=== PATIENT | male | born 1995 | race African-American/Black ===

== ENCOUNTER 2018-02-14 03:57 | Emergency (ER) | payer SELFPAY ==
[2018-02-14] MEDS ORDERED: Ondansetron 4 MG/2 ML SDV IVPUSH ONE (04:15)
[2018-02-14] MEDS ORDERED: Sodium Chloride 0.9% 1,000 ML IV ONE (04:16)
[2018-02-14 04:54] LABS: CHLORIDE,CL 103 mmol/L (98-107); SODIUM,NA 139 mmol/L (136-148)
--- NOTE | 2018-02-14 06:08 | EDM.PDOC ---
ED HPI GENERAL MEDICAL PROBLEM - General Chief Complaint: Gastrointestinal Problem Stated Complaint: DIARRHEA, VOMITING Time Seen by Provider: 02/14/18 06:03 - History of Present Illness INITIAL COMMENTS - FREE TEXT/NARRATIVE: HISTORY AND PHYSICAL: History of present illness: Patient is 22-year-old male presents with a concern of diarrhea 1 day. No fever chills no abdominal pain no chest pain cough shortness of breath or other concern Review of systems: As per history of present illness and below otherwise all systems reviewed and negative. Past medical history: As per history of present illness and as reviewed below otherwise noncontributory. Surgical history: As per history of present illness and as reviewed below otherwise noncontributory. Social history: No reported history of drug or alcohol abuse. Family history: As per history of present illness and as reviewed below otherwise noncontributory. Physical exam: HEENT: Atraumatic, normocephalic, pupils reactive, negative for conjunctival pallor or scleral icterus, mucous membranes dry throat clear, neck supple, nontender, trachea midline. Lungs: Clear to auscultation, breath sounds equal bilaterally, chest nontender. Heart: S1S2, regular, negative for clicks, rubs, or JVD. Abdomen: Soft, nondistended, nontender. Negative for masses or hepatosplenomegaly. Negative for costovertebral tenderness. Pelvis: Stable nontender. Genitourinary: Deferred. Rectal: Deferred. Extremities: Atraumatic, negative for cords or calf pain. Neurovascular unremarkable. Neuro: Awake, alert, oriented. Cranial nerves II through XII unremarkable. Cerebellum unremarkable. Motor and sensory unremarkable throughout. Exam nonfocal. Diagnostics: CBC CMP UA influenza screen Therapeutics: Normal saline 1 L bolus Impression: #1 viral syndrome #2 dehydration Definitive disposition and diagnosis as appropriate pending reevaluation and review of above. general abdominal Pain Score (Numeric/FACES): 2 - Related Data Allergies Allergy/AdvReac Type Severity Reaction Status Date / Time No Known Allergies Allergy Verified 02/14/18 04:03 Home Meds: Home Meds . [No Known Home Meds] 02/14/18 [History] Past Medical History HEENT History: Reports: None Cardiovascular History: Reports: None Respiratory History: Reports: None Gastrointestinal History: Reports: None Genitourinary History: Reports: None Musculoskeletal History: Reports: None Neurological History: Reports: None Psychiatric History: Reports: None Endocrine/Metabolic History: Reports: None Hematologic History: Reports: None Oncologic (Cancer) History: Reports: None Dermatologic History: Reports: None - Infectious Disease History Infectious Disease History: Reports: Scarlet Fever - Past Surgical History Male Surgical History: Reports: None Musculoskeletal Surgical History: Reports: None Social & Family History - Family History Family Medical History: Noncontributory - Tobacco Use Smoking Status *Q: Current Every Day Smoker Years of Tobacco use: 1 Packs/Tins Daily: 1 - Recreational Drug Use Recreational Drug Use: No ED ROS GENERAL - Review of Systems Review Of Systems: ROS reveals no pertinent complaints other than HPI. ED EXAM, GENERAL - Physical Exam Exam: See Below (See dictation) Course - Vital Signs Last Recorded V/S: Last Vital Signs Temp 36.6 C 02/14/18 05:15 Pulse 62 02/14/18 05:15 Resp 18 02/14/18 05:15 BP 108/60 02/14/18 05:15 Pulse Ox 98 02/14/18 05:15 - Orders/Labs/Meds Orders: Active Orders 24 hr Category Date Time Status INFLUENZA A+B AG SCREEN [RM] Stat Lab 02/14/18 04:20 Ordered UA W/MICROSCOPIC [URIN] Stat Lab 02/14/18 05:11 Ordered Labs: Laboratory Tests 02/14/18 02/14/18 02/14/18 Range/Units 04:20 04:20 05:11 WBC 13.63 H (4.0-11.0) K/uL RBC 4.89 (4.50-5.90) M/uL Hgb 15.1 (13.0-17.0) g/dL Hct 44.9 (38.0-50.0) % MCV 91.8 (80.0-98.0) fL MCH 30.9 (27.0-32.0) pg MCHC 33.6 (31.0-37.0) g/dL RDW Std Deviation 44.6 (28.0-62.0) fl RDW Coeff of Holly 13 (11.0-15.0) % Plt Count 204 (150-400) K/uL MPV 10.40 (7.40-12.00) fL Neut % (Auto) 62.9 (48.0-80.0) % Lymph % (Auto) 25.4 (16.0-40.0) % [place] % (Auto) 9.2 (0.0-15.0) % Eos % (Auto) 2.1 (0.0-7.0) % Baso % (Auto) 0.4 (0.0-1.5) % Neut # (Auto) 8.6 H (1.4-5.7) K/uL Lymph # (Auto) 3.5 H (0.6-2.4) K/uL [place] # (Auto) 1.3 H (0.0-0.8) K/uL Eos # (Auto) 0.3 (0.0-0.7) K/uL Baso # (Auto) 0.1 (0.0-0.1) K/uL Nucleated RBC % 0.0 /100WBC Nucleated RBCs # 0 K/uL Sodium 139 (136-148) mmol/L Potassium 4.3 (3.5-5.1) mmol/L Chloride 103 (98-107) mmol/L Carbon Dioxide 30.4 (21.0-32.0) mmol/L BUN 16 (7.0-18.0) mg/dL Creatinine 1.1 (0.8-1.3) mg/dL Est Cr Clr Drug Dosing 108.48 mL/min Estimated GFR (MDRD) > 60.0 ml/min Glucose 112 H (74-106) mg/dL Calcium 9.3 (8.5-10.1) mg/dL Total Bilirubin 0.3 (0.2-1.0) mg/dL AST 26 (15-37) IU/L ALT 26 (14-63) IU/L Alkaline Phosphatase 59 (46-116) U/L Total Protein 7.8 (6.4-8.2) g/dL Albumin 4.5 (3.4-5.0) g/dL Globulin 3.3 (2.0-3.5) g/dL Albumin/Globulin Ratio 1.4 (1.3-2.8) Urine Color YELLOW Urine Appearance CLEAR Urine pH 8.0 (5.0-8.0) Ur Specific [place] 1.015 (1.001-1.035) Urine Protein TRACE (NEGATIVE) mg/dL Urine Glucose (UA) NEGATIVE (NEGATIVE) mg/dL Urine Ketones NEGATIVE (NEGATIVE) mg/dL Urine Occult Blood NEGATIVE (NEGATIVE) Urine Nitrite NEGATIVE (NEGATIVE) Urine Bilirubin NEGATIVE (NEGATIVE) Urine Urobilinogen 1.0 (<2.0) EU/dL Ur Leukocyte Esterase NEGATIVE (NEGATIVE) Urine RBC 0-2 (0-2/HPF) Urine WBC 1-2 (0-5/HPF) Ur Epithelial Cells OCCASIONAL (NONE-FEW) Urine Bacteria FEW (NEGATIVE) Urine Mucus MODERATE (NONE-MOD) Meds: Medications Discontinued Medications Generic Name Dose Route Start Last Admin Trade Name Tobias PRN Reason Stop Dose Admin Sodium Chloride 1,000 mls @ 999 mls/hr 02/14/18 04:16 02/14/18 04:21 Normal Saline IV 02/14/18 05:16 999 mls/hr .Bolus ONE Administration Ondansetron HCl 4 mg 02/14/18 04:15 02/14/18 04:21 Zofran IVPUSH 02/14/18 04:16 4 mg ONETIME ONE Administration Departure - Departure Time of Disposition: 06:07 Disposition: Home, Self-Care 01 Condition: Good Clinical Impression: Viral syndrome, Dehydration - Discharge Information Referrals: PCP,None [Primary Care Provider] - Additional Instructions: The following information is given to patients seen in the emergency department who are being discharged to home. This information is to outline your options for follow-up care. We provide all patients seen in our emergency department with a follow-up referral. The need for follow-up, as well as the timing and circumstances, are variable depending upon the specifics of your emergency department visit. If you don't have a primary care physician on staff, we will provide you with a referral. We always advise you to contact your personal physician following an emergency department visit to inform them of the circumstance of the visit and for follow-up with them and/or the need for any referrals to a consulting specialist. The emergency department will also refer you to a specialist when appropriate. This referral assures that you have the opportunity for followup care with a specialist. All of these measure are taken in an effort to provide you with optimal care, which includes your followup. Under all circumstances we always encourage you to contact your private physician who remains a resource for coordinating your care. When calling for followup care, please make the office aware that this follow-up is from your recent emergency room visit. If for any reason you are refused follow-up, please contact the [facility] emergency department at and asked to speak to the emergency department charge nurse. Follow-up primary medical doctor call schedule appointment return as needed as discussed - My Orders Last 24 Hours: My Active Orders 02/14/18 04:20 INFLUENZA A+B AG SCREEN [RM] Stat 02/14/18 05:11 UA W/MICROSCOPIC [URIN] Stat - Assessment/Plan Last 24 Hours: My Active Orders 02/14/18 04:20 INFLUENZA A+B AG SCREEN [RM] Stat 02/14/18 05:11 UA W/MICROSCOPIC [URIN] Stat
== END 2018-02-14 06:37 | disposition home or self-care (01) ==
LOC: MW.ED 03:57
DX: E86.0 Dehydration (principal); B34.9 Viral infection, unspecified; F17.210 Nicotine dependence, cigarettes, uncomplicated
CPT/HCPCS: 80053; 81001; 85025; 87804; 96361; 96374; 99284; J2405; J7040; 99283

== ENCOUNTER 2019-09-22 18:20 | Emergency (ER) | payer BC ==
[2019-09-22] MEDS ORDERED: Sodium Chloride 0.9% 1,000 ML IV ONE (18:40)
[2019-09-22] MEDS ORDERED: Ondansetron 4 MG/2 ML SDV IVPUSH ONE (18:40)
[2019-09-22] MEDS ORDERED: Alum Hydrox/Mag Hydrox/Simeth 15 ML, Metoclopramide 5 MG, Lidocaine 2% 5 ML PO ONE ×3 (18:42)
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
[2019-09-22 19:31] LABS: BLOOD UREA NITROGEN,BUN 14 mg/dL (7.0-18.0); CARBON DIOXIDE,CO2 22.9 mmol/L (21.0-32.0); CHLORIDE,CL 104 mmol/L (98-107); GLUCOSE RANDOM 107 mg/dL (74-106); LIPASE 94 U/L (73-393); POTASSIUM,K 3.6 mmol/L (3.5-5.1); SODIUM,NA 142 mmol/L (136-148)
[2019-09-22] MEDS ORDERED: Iopamidol 755 MG/ML 500 ML Multipack Bottle IVPUSH STA (20:03)
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
== END 2019-09-22 20:55 | disposition home or self-care (01) ==
LOC: MW.ED 18:20
DX: R10.84 Generalized abdominal pain (principal); D72.829 Elevated white blood cell count, unspecified
CPT/HCPCS: 36415; 74177; 80053; 81001; 83690; 85025; 96361; 96374; 99284; A9270; J2405; J7040; Q9967; 99283

== ENCOUNTER 2021-07-02 04:54 | Emergency (ER) | payer BC ==
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
== END 2021-07-02 05:00 ==
LOC: MW.ED 04:54
DX: Z02.89 Encounter for other administrative examinations (principal)
CPT/HCPCS: 99281; 99283

== ENCOUNTER 2021-07-08 14:02 | Emergency (ER) | payer BC ==
[2021-07-08] MEDS ORDERED: Benzocaine 20% Topical Spray UD MUCMEM ONE (15:35)
[2021-07-08] MEDS ORDERED: Lidocaine 2% Viscous Solution 15 ML Cup PO ONE (15:35)
--- NOTE | 2021-07-08 16:10 | EDM.PDOC ---
ED HPI GENERAL MEDICAL PROBLEM - General Chief Complaint: ENT Problem Stated Complaint: TOOTH PAIN Time Seen by Provider: 07/08/21 15:20 Source of Information: Reports: Patient History Limitations: Reports: No Limitations - History of Present Illness INITIAL COMMENTS - FREE TEXT/NARRATIVE: HISTORY AND PHYSICAL: History of present illness: Patient is a 26-year-old male who presents emergency room today with concern of dental abscess ongoing for the past 3 to 4 days. Patient states he has had multiple tooth infections in the past and up to go to a dentist but has not yet done this. Patient states he has not taken anything for his symptoms. Patient states he has been able to eat and drink discussed to chew on the opposite side of his infection. Patient denies any other symptoms or concerns. Patient denies fever, chills, chest pain, shortness of breath, or cough. Denies headache, neck stiff ness, change in vision, syncope, or near syncope. Denies nausea, vomiting, abdominal pain, diarrhea, constipation, or dysuria. Has not noted any blood in urine or stool. Patient has been eating and drinking appropriately. Review of systems: As per history of present illness and below otherwise all systems reviewed and negative. Past medical history: As per history of present illness and as reviewed below otherwise noncontributory. Surgical history: As per history of present illness and as reviewed below otherwise noncontributory. Social history: See social history for further information Family history: As per history of present illness and as reviewed below otherwise noncontributory. Physical exam: General: Patient is alert, oriented, and in no acute distress. Patient sitting comfortably on exam table. Vitals stable and reviewed by me HEENT: Dental abscess noted adjacent to tooth #30 and 29 with mild to moderate edema of the adjacent mandible. Patient has full range of motion of the TMJ joint without pain or difficulty. Otherwise, atraumatic, normocephalic, pupils equal and reactive bilaterally, negative for conjunctival pallor or scleral icterus, mucous membranes moist, TMs normal bilaterally, throat clear, neck supple, nontender, trachea midline. No drooling or trismus noted. No meningeal signs. No hot potato voice noted. Lungs: Clear to auscultation, breath sounds equal bilaterally, chest nontender. Heart: S1S2, regular rate and rhythm without overt murmur Abdomen: Soft, nondistended, nontender. Negative for masses or hepatosplenomegaly. Negative for costovertebral tenderness. Pelvis: Stable nontender. Genitourinary: Deferred. Rectal: Deferred. Skin: Intact, warm, dry. No lesions or rashes noted. Extremities: Atraumatic, negative for cords or calf pain. Neurovascular unremarkable. Neuro: Awake, alert, oriented. Cranial nerves II through XII unremarkable. Cerebellum unremarkable. Motor and sensory unremarkable throughout. Exam nonfocal. Notes: Signs and symptoms that were prompt return to the ED thoroughly discussed with patient. Discussed importance for follow-up with a dentist for definitive treatment. Voices understanding and is agreeable to plan of care. Denies any further questions or concerns at this time. Diagnostics: None Therapeutics: Lidocaine, incision and drainage of dental abscess Prescription: Tramadol, Augmentin Impression: Dental abscess Plan: 1. Please take medication as prescribed. Caution when using tramadol as this medication causes sedation. Do not operate any heavy equipment or drive any vehicles while on this medication. Caution with this medication use outside the home. 2. Tylenol and/or ibuprofen as directed and as needed for pain management. 3. "Tooth Balls" have been given to you; apply along the gumline every 2-3 hours as needed. Do not swallow these; external use only. 4. Follow-up with a dentist for definitive care. Return to the ED as needed and as discussed. Definitive disposition and diagnosis as appropriate pending reevaluation and review of above. dental Pain Score (Numeric/FACES): 8 - Related Data Allergies Allergy/AdvReac Type Severity Reaction Status Date / Time tramadol AdvReac Vomiting Verified 07/08/21 20:22 Home Meds: Home Meds Amoxicillin/Potassium Clav [Augmentin 875-125 Tablet] 1 each PO BID 10 Days #20 tablet 07/08/21 [Rx] traMADol HCl [Tramadol HCl] 50 mg PO Q6H PRN #10 tablet 07/08/21 [Rx] Past Medical History HEENT History: Reports: None Cardiovascular History: Reports: None Respiratory History: Reports: None Gastrointestinal History: Reports: None Genitourinary History: Reports: None Musculoskeletal History: Reports: None Neurological History: Reports: None Psychiatric History: Reports: None Endocrine/Metabolic History: Reports: None Hematologic History: Reports: None Oncologic (Cancer) History: Reports: None Dermatologic History: Reports: Other (See Below) Other Dermatologic History: I&D of abscess - Infectious Disease History Infectious Disease History: Reports: Scarlet Fever - Past Surgical History GI Surgical History: Reports: Other (See Below) Other GI Surgeries/Procedures: inguinal Male Surgical History: Reports: None Musculoskeletal Surgical History: Reports: None Social & Family History - Family History Family Medical History: No Pertinent Family History Cardiac: Reports: CAD Endocrine/Metabolic: Reports: Diabetes, Type I - Tobacco Use Tobacco Use Status *Q: Current Every Day Tobacco User Years of Tobacco use: 10 Packs/Tins Daily: 1 - Caffeine Use Caffeine Use: Reports: None - Recreational Drug Use Recreational Drug Use: Yes Recreational Drug Type: Reports: Marijuana/Hashish Recreational Drug Use Frequency: Daily ED ROS GENERAL - Review of Systems Review Of Systems: Comprehensive ROS is negative, except as noted in HPI. ED EXAM, GENERAL - Physical Exam Exam: See Below (see dictation) ED I&D PROCEDURES - I&D Site: Dental abscess adjacent to tooth 29 and 30 Local anesthesia - Lidocaine (Xylocaine): 1% Plain Local Anesthetic Volume: 2cc Area Incised With: 11 Blade Drainage: Purulent, Bloody, Moderate Amount Probed to Break Up Loculations: Yes Packed With: None Sterile Dressinx4(s) Complications: No Course - Vital Signs Last Recorded V/S: Last Vital Signs Temp 97 F 07/08/21 16:20 Pulse 70 07/08/21 16:20 Resp 20 07/08/21 16:20 BP 114/87 07/08/21 16:20 Pulse Ox 100 07/08/21 16:20 - Orders/Labs/Meds Meds: Medications Discontinued Medications Generic Name Dose Route Start Last Admin Trade Name Tobias PRN Reason Stop Dose Admin Benzocaine 2 each 07/08/21 15:35 07/08/21 16:08 Benzocaine 20% Topical [place] Ud MUCMEM 07/08/21 15:36 2 each ONETIME ONE Administration Lidocaine HCl 5 ml 07/08/21 15:35 07/08/21 16:08 Lidocaine 1% 5 Ml Sdv INJECT 07/08/21 15:36 5 ml ONETIME ONE Administration Lidocaine HCl 15 ml 07/08/21 15:35 07/08/21 16:08 Lidocaine 2% Viscous Solution 15 Ml Cup PO 07/08/21 15:36 15 ml ONETIME ONE Administration Departure - Departure Time of Disposition: 16:09 Disposition: Home, Self-Care 01 Clinical Impression: Dental abscess - Discharge Information Prescriptions: Amoxicillin/Potassium Clav [Augmentin 875-125 Tablet] 1 each PO BID 10 Days #20 tablet traMADol HCl [Tramadol HCl] 50 mg PO Q6H PRN #10 tablet PRN Reason: Pain Instructions: Dental Abscess, [id number] Referrals: PCP,None [Primary Care Provider] - Forms: ED Department Discharge Additional Instructions: The following information is given to patients seen in the emergency department who are being discharged to home. This information is to outline your options for follow-up care. We provide all patients seen in our emergency department with a follow-up referral. The need for follow-up, as well as the timing and circumstances, are variable depending upon the specifics of your emergency department visit. If you don't have a primary care physician on staff, we will provide you with a referral. We always advise you to contact your personal physician following an emergency department visit to inform them of the circumstance of the visit and for follow-up with them and/or the need for any referrals to a consulting specialist. The emergency department will also refer you to a specialist when appropriate. This referral assures that you have the opportunity for follow-up care with a specialist. All of these measure are taken in an effort to provide you with optimal care, which includes your follow-up. Under all circumstances we always encourage you to contact your private physician who remains a resource for coordinating your care. When calling for follow-up care, please make the office aware that this follow-up is from your recent emergency room visit. If for any reason you are refused follow-up, please contact the [facility] Emergency Department at and asked to speak to the emergency department charge nurse. [facility] [address] [place] [id number] [id number] 1. Please take medication as prescribed. Caution when using tramadol as this medication causes sedation. Do not operate any heavy equipment or drive any vehicles while on this medication. Caution with this medication use outside the home. 2. Tylenol and/or ibuprofen as directed and as needed for pain management. 3. "Tooth Balls" have been given to you; apply along the gumline every 2-3 hours as needed. Do not swallow these; external use only. 4. Follow-up with a dentist for definitive care. Return to the ED as needed and as discussed.
== END 2021-07-08 16:20 | disposition home or self-care (01) ==
LOC: MW.ED 14:02
DX: K04.7 Periapical abscess without sinus (principal); Z88.5 Allergy status to narcotic agent; Z72.0 Tobacco use
CPT/HCPCS: 41800; 99282; A9270

== ENCOUNTER 2021-07-08 18:03 | Emergency (ER) | payer BC ==
[2021-07-08] MEDS ORDERED: Ondansetron 4 MG Tab.DIS PO ONE (18:43)
[2021-07-08] MEDS ORDERED: Sodium Chloride 0.9% 1,000 ML IV ONE (19:00)
[2021-07-08 19:53] LABS: BLOOD UREA NITROGEN,BUN 13 mg/dL (7.0-18.0); CARBON DIOXIDE,CO2 27.5 mmol/L (21.0-32.0); CHLORIDE,CL 102 mmol/L (98-107); GLUCOSE RANDOM 103 mg/dL (74-106); SODIUM,NA 137 mmol/L (136-148)
--- NOTE | 2021-07-08 20:19 | EDM.PDOC ---
ED HPI GENERAL MEDICAL PROBLEM - General Chief Complaint: General Stated Complaint: SHAKING, VOMITTING Time Seen by Provider: 07/08/21 18:55 Source of Information: Reports: Patient History Limitations: Reports: No Limitations - History of Present Illness INITIAL COMMENTS - FREE TEXT/NARRATIVE: HISTORY AND PHYSICAL: History of present illness: Patient is a 26-year-old male who presents emergency room today with concern of a possible adverse reaction to tramadol. I had personally seen and evaluated patient earlier in the emergency room for dental abscess and had incised and drained dental abscess earlier today the emergency room. I had discharge patient with Augmentin and tramadol for pain with close follow-up instruction to see his dentist. Patient states that when he got to the pharmacy, he took his first dose of Augmentin and states that he got home and did not have any symptoms. Patient states after a while, he decided to take a tramadol and states that he took the tramadol and after 5 minutes to 10 minutes he began feeling shaky and had an episode of vomiting. Patient states that he does still feel shaky and had one episode of vomiting upon triage. Patient states he has taken Augmentin several other times for dental infections and never had an adverse reaction to Augmentin but has never had tramadol before. Patient states that he feels strongly the tramadol caused his symptoms. He denies any difficulties with breathing, hives, or other symptoms. Patient denies fever, chills, chest pain, shortness of breath, or cough. Denies headache, neck stiff ness, change in vision, syncope, or near syncope. Denies nausea, vomiting, abdominal pain, diarrhea, constipation, or dysuria. Has not noted any blood in urine or stool. Patient has been eating and drinking appropriately. Review of systems: As per history of present illness and below otherwise all systems reviewed and negative. Past medical history: As per history of present illness and as reviewed below otherwise noncontributory. Surgical history: As per history of present illness and as reviewed below otherwise noncontributory. Social history: See social history for further information Family history: As per history of present illness and as reviewed below otherwise noncontributory. Physical exam: General: Patient is alert, oriented, and in no acute distress. Patient sitting comfortably on exam table. Vitals stable and reviewed by me. HEENT: No lip edema, tongue edema, or oropharyngeal edema. No stridor. Atraumatic, normocephalic, pupils equal and reactive bilaterally, negative for conjunctival pallor or scleral icterus, mucous membranes moist, TMs normal bilaterally, throat clear, neck supple, nontender, trachea midline. No drooling or trismus noted. No meningeal signs. No hot potato voice noted. Lungs: Clear to auscultation, breath sounds equal bilaterally, chest nontender. Heart: S1S2, regular rate and rhythm without overt murmur Abdomen: Soft, nondistended, nontender. Negative for masses or hepatosplenomegaly. Negative for costovertebral tenderness. Pelvis: Stable nontender. Genitourinary: Deferred. Rectal: Deferred. Skin: Intact, warm, dry. No lesions or rashes noted. Extremities: Atraumatic, negative for cords or calf pain. Neurovascular unremarkable. Neuro: Awake, alert, oriented. Cranial nerves II through XII unremarkable. Cerebellum unremarkable. Motor and sensory unremarkable throughout. Exam nonfocal. Notes: Patient is a 26-year-old male who presents emergency room today with concern of 2 episodes of vomiting and feeling shaky after taking a dose of tramadol for pain for dental infection. No lip edema, tongue edema, or oropharyngeal edema. No stridor. Upon arrival to the ED, patient is vitally stable but does have 1 episode of emesis on triage that is nonbilious and nonbloody. Will obtain basic lab work, provide a dose of Zofran, and reassess patient. CBC shows mild leukocytosis of 11.34, otherwise mild derangements of CBC are unremarkable. CMP is unremarkable. Upon reevaluation of patient, he has much improvement of his symptoms today in the emergency room and does not continue to actively vomit. Discussed with emelia ent to no longer take tramadol and this was added to patient's adverse reaction/allergy list. Strict return precautions thoroughly discussed with patient. Discussed importance for follow-up with a primary care provider and dentist. Voices understanding and is agreeable to plan of care. Denies any further questions or concerns at this time. Diagnostics: CBC, CMP Therapeutics: Normal saline, Zofran Prescription: None Impression: Medication reaction Plan: 1. Do not continue to take tramadol as discussed. You can still alternate ibuprofen and Tylenol as directed for pain and discomfort. 2. Follow-up with a primary care provider and dentist as discussed. Return to the ED as needed and as discussed. Definitive disposition and diagnosis as appropriate pending reevaluation and review of above. - Related Data Allergies Allergy/AdvReac Type Severity Reaction Status Date / Time tramadol AdvReac Vomiting Verified 07/08/21 20:22 Home Meds: Home Meds Amoxicillin/Potassium Clav [Augmentin 875-125 Tablet] 1 each PO BID 10 Days #20 tablet 07/08/21 [Rx] traMADol HCl [Tramadol HCl] 50 mg PO Q6H PRN #10 tablet 07/08/21 [Rx] Past Medical History HEENT History: Reports: None Cardiovascular History: Reports: None Respiratory History: Reports: None Gastrointestinal History: Reports: None Genitourinary History: Reports: None Musculoskeletal History: Reports: None Neurological History: Reports: None Psychiatric History: Reports: None Endocrine/Metabolic History: Reports: None Hematologic History: Reports: None Oncologic (Cancer) History: Reports: None Dermatologic History: Reports: Other (See Below) Other Dermatologic History: I&D of abscess - Infectious Disease History Infectious Disease History: Reports: Scarlet Fever - Past Surgical History GI Surgical History: Reports: Other (See Below) Other GI Surgeries/Procedures: inguinal Male Surgical History: Reports: None Musculoskeletal Surgical History: Reports: None Social & Family History - Family History Family Medical History: No Pertinent Family History Cardiac: Reports: CAD Endocrine/Metabolic: Reports: Diabetes, Type I - Caffeine Use Caffeine Use: Reports: None ED ROS GENERAL - Review of Systems Review Of Systems: Comprehensive ROS is negative, except as noted in HPI. ED EXAM, GENERAL - Physical Exam Exam: See Below (See dictation) Course - Vital Signs Last Recorded V/S: Last Vital Signs Temp 98.8 F 07/08/21 18:21 Pulse 78 07/08/21 18:21 Resp 18 07/08/21 18:21 BP 131/83 07/08/21 18:21 Pulse Ox 99 07/08/21 18:21 - Orders/Labs/Meds Labs: Laboratory Tests 07/08/21 07/08/21 Range/Units 19:15 19:15 WBC 11.34 H (4.0-11.0) K/uL RBC 4.32 L (4.50-5.90) M/uL Hgb 13.2 (13.0-17.0) g/dL Hct 39.8 (38.0-50.0) % MCV 92.1 (80.0-98.0) fL MCH 30.6 (27.0-32.0) pg MCHC 33.2 (31.0-37.0) g/dL RDW Std Deviation 45.3 (28.0-62.0) fl RDW Coeff of Holly 13 (11.0-15.0) % Plt Count 172 (150-400) K/uL MPV 11.10 (7.40-12.00) fL Neut % (Auto) 89.8 H (48.0-80.0) % Lymph % (Auto) 7.8 L (16.0-40.0) % Chase % (Auto) 2.0 (0.0-15.0) % Eos % (Auto) 0.3 (0.0-7.0) % Baso % (Auto) 0.1 (0.0-1.5) % Neut # (Auto) 10.2 H (1.4-5.7) K/uL Lymph # (Auto) 0.9 (0.6-2.4) K/uL Chase # (Auto) 0.2 (0.0-0.8) K/uL Eos # (Auto) 0.0 (0.0-0.7) K/uL Baso # (Auto) 0.0 (0.0-0.1) K/uL Nucleated RBC % 0.0 /100WBC Nucleated RBCs # 0 K/uL Sodium 137 (136-148) mmol/L Potassium 4.0 (3.5-5.1) mmol/L Chloride 102 (98-107) mmol/L Carbon Dioxide 27.5 (21.0-32.0) mmol/L BUN 13 (7.0-18.0) mg/dL Creatinine 1.1 (0.8-1.3) mg/dL Est Cr Clr Drug Dosing TNP Estimated GFR (MDRD) > 60.0 ml/min Glucose 103 (74-106) mg/dL Calcium 8.5 (8.5-10.1) mg/dL Total Bilirubin 0.7 (0.2-1.0) mg/dL AST 18 (15-37) IU/L ALT 17 (14-63) IU/L Alkaline Phosphatase 64 (46-116) U/L Total Protein 7.3 (6.4-8.2) g/dL Albumin 4.1 (3.4-5.0) g/dL Globulin 3.2 (2.6-4.0) g/dL Albumin/Globulin Ratio 1.3 (0.9-1.6) Meds: Medications Discontinued Medications Generic Name Dose Route Start Last Admin Trade Name Freq PRN Reason Stop Dose Admin Sodium Chloride 1,000 mls @ 999 mls/hr 07/08/21 19:00 07/08/21 19:11 Normal Saline IV 07/08/21 20:00 999 mls/hr STAT ONE Administration Ondansetron HCl 4 mg 07/08/21 18:43 07/08/21 18:47 Ondansetron 4 Mg Tab.Dis PO 07/08/21 18:44 4 mg ONETIME ONE Administration Departure - Departure Time of Disposition: 20:18 Disposition: Home, Self-Care 01 Clinical Impression: Medication reaction Qualifiers: Encounter type: initial encounter Qualified Code(s): T50.905A - Adverse effect of unspecified drugs, medicaments and biological substances, initial encounter - Discharge Information Instructions: Medical Screening Exam Referrals: PCP,None [Primary Care Provider] - Forms: ED Department Discharge Additional Instructions: The following information is given to patients seen in the emergency department who are being discharged to home. This information is to outline your options for follow-up care. We provide all patients seen in our emergency department with a follow-up referral. The need for follow-up, as well as the timing and circumstances, are variable depending upon the specifics of your emergency department visit. If you don't have a primary care physician on staff, we will provide you with a referral. We always advise you to contact your personal physician following an emergency department visit to inform them of the circumstance of the visit and for follow-up with them and/or the need for any referrals to a consulting specialist. The emergency department will also refer you to a specialist when appropriate. This referral assures that you have the opportunity for follow-up care with a specialist. All of these measure are taken in an effort to provide you with optimal care, which includes your follow-up. Under all circumstances we always encourage you to contact your private physician who remains a resource for coordinating your care. When calling for follow-up care, please make the office aware that this follow-up is from your recent emergency room visit. If for any reason you are refused follow-up, please contact the [facility] Emergency Department at and asked to speak to the emergency department charge nurse. [facility] [address], [place] [address] [facility] [address] [place] [id number] 1. Do not continue to take tramadol as discussed. You can still alternate ibuprofen and Tylenol as directed for pain and discomfort. 2. Follow-up with a primary care provider and dentist as discussed. Return to the ED as needed and as discussed. Sepsis Event Note (ED) - Evaluation Sepsis Screening Result: No Definite Risk
== END 2021-07-08 20:30 | disposition home or self-care (01) ==
LOC: MW.ED 18:03
DX: R11.10 Vomiting, unspecified (principal); R25.9 Unspecified abnormal involuntary movements; T40.425A Adverse effect of tramadol, initial encounter; Z88.5 Allergy status to narcotic agent; Z79.899 Other long term (current) drug therapy
CPT/HCPCS: 36415; 80053; 85025; 99284; A9270; J7030

== ENCOUNTER 2021-09-17 04:27 | Emergency (ER) | payer BC ==
[2021-09-17] MEDS ORDERED: Ondansetron 4 MG Tab.DIS PO ONE ×2 (04:50→04:58)
[2021-09-17] MEDS ORDERED: Ondansetron 4 MG Tab.DIS ONE (04:55)
[2021-09-17] MEDS ORDERED: Ketorolac 15 MG/ML SDV IM ONE (05:21)
--- NOTE | 2021-09-17 05:33 | CR ---
INDICATION: Trauma. COMPARISON: None. TECHNIQUE: Three views of the right hand. FINDINGS: Normal mineralization and alignment. No fracture or dislocation. Joint spaces are preserved. Soft tissues are unremarkable. IMPRESSION: No acute osseous abnormality. Dictated by Mejia Maurer MD @ 09/17/2021 5:32:02 AM Dictated by: Mejia Maurer MD @ 09/17/2021 05:32:20 (Electronically Signed)
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
[2021-09-17] MEDS ORDERED: LORazepam 2 MG/ML SDV ONE (05:42)
[2021-09-17] MEDS ORDERED: Lactated Ringers 1,000 ML IV SCH ×2 (05:45→08:00)
[2021-09-17] MEDS ORDERED: LORazepam 2 MG/ML SDV IVPUSH ONE (05:49)
--- NOTE | 2021-09-17 06:19 | PCM.EKG ---
#1 Interpretation EKG Date: 09/17/21 Time: 05:58 Rhythm: NSR Rate (Beats/Min): 77 [place]: Normal P-Wave: Present QRS: Normal ST-T: Normal (DONALD) QT: Normal Comparison: NA - No Prior EKG EKG Interpretation Comments: Sinus Rhythm with Benign Early Repolarization #2 Interpretation EKG Date: 09/17/21 Time: 06:00 Rhythm: NSR Rate (Beats/Min): 74 [place]: Normal P-Wave: Present QRS: Normal ST-T: Normal (DONALD) QT: Normal Comparison: No Change EKG Interpretation Comments: Sinus Rhythm with Benign Early Repolarization
[2021-09-17 06:29] LABS: ACETAMINOPHEN <2.0 ug/mL; BLOOD UREA NITROGEN,BUN 10 mg/dL (7.0-18.0); CHLORIDE,CL 103 mmol/L (98-107); GLUCOSE RANDOM 101 mg/dL (74-106); POTASSIUM,K 3.8 mmol/L (3.5-5.1); SODIUM,NA 139 mmol/L (136-148)
--- NOTE | 2021-09-17 07:08 | CT ---
INDICATION: Seizure. TECHNIQUE: CT Head without contrast. COMPARISON: None. FINDINGS: CSF spaces: Within normal limits for age. Brain parenchyma: The luke-white differentiation is normal. No sign of mass, hemorrhage, or midline shift. Skull base and calvarium: The visualized paranasal sinuses and mastoid air cells are clear. The visualized orbits are grossly unremarkable. No skull fractures. . IMPRESSION: Unremarkable noncontrast head CT. Please note that all CT scans at this facility use dose modulation, iterative reconstruction, and/or weight-based dosing when appropriate to reduce radiation dose to as low as reasonably achievable. Dictated by Frank Alarcon MD @ 09/17/2021 7:07:23 AM (Electronically Signed)
== END 2021-09-17 12:24 | disposition home or self-care (01) ==
LOC: MW.ED 04:27
DX: F10.129 Alcohol abuse with intoxication, unspecified (principal); S60.221A Contusion of right hand, initial encounter; R56.9 Unspecified convulsions; Z88.8 Allergy status to other drugs, medicaments and biological substances; Y90.0 Blood alcohol level of less than 20 mg/100 ml; W22.09XA Striking against other stationary object, initial encounter
CPT/HCPCS: 36415; 36600; 70450; 73130; 80053; 80143; 80179; 80307; 81003; 82550; 82803; 82947; 83605; 83735; 84443; 84484; 85025; 87635; 93005; 96372; 96374; 99284; A9270; J1885; J2060; J7120; U0002

== ENCOUNTER 2021-10-02 09:36 | Emergency (ER) | payer BC ==
[2021-10-02] MEDS ORDERED: Lidocaine 2% Viscous Solution 15 ML Cup PO ONE (09:43)
[2021-10-02] MEDS ORDERED: Benzocaine 20% Topical Spray UD MUCMEM ONE (09:43)
--- NOTE | 2021-10-02 09:51 | EDM.PDOC ---
ED HPI GENERAL MEDICAL PROBLEM - General Chief Complaint: ENT Problem Stated Complaint: MOUTH PAIN Time Seen by Provider: 10/02/21 09:38 Source of Information: Reports: Patient History Limitations: Reports: No Limitations - History of Present Illness INITIAL COMMENTS - FREE TEXT/NARRATIVE: HISTORY AND PHYSICAL: History of present illness: Patient is a 26-year-old male who presents to the emergency room with complaints of dental abscess to the #4 through 5 region. He states he frequently gets dental abscesses and has seen a dentist and they are requesting he get a root canal. Patient states he does not want surgery. Upon arrival he is requesting for us to "knock me out" and remove the infected tooth. Patient denies any fever, chills, headache, change in vision, syncope or near syncope. Denies any chest pain, back pain, shortness of breath or cough. Denies any abdominal pain, nausea, vomiting, diarrhea, constipation or dysuria. Has not noted any blood in urine or stool. Patient has been eating and drinking appropriately. No recent travel or sick contacts. Review of systems: As per history of present illness and below otherwise all systems reviewed and negative. Past medical history: As per history of present illness and as reviewed below otherwise noncontributory. Surgical history: As per history of present illness and as reviewed below otherwise nonc ontributory. Social history: See social history for further information Family history: As per history of present illness and as reviewed below otherwise noncontributory. Physical exam: General: Well developed and well nourished 26-year-old black male. Alert and orientated x 3. Nontoxic in appearance and in no acute distress. Vital signs are stable and have been reviewed by me. Nursing notes were reviewed. HEENT: Atraumatic, normocephalic, pupils equal and reactive bilaterally, negative for conjunctival pallor or scleral icterus, mucous membranes moist, erythema and soft tissue swelling at #3 through 5 with tenderness. TMs normal bilaterally, throat clear, neck supple, nontender, trachea midline. No drooling or trismus noted. No meningeal signs. No hot potato voice noted. Lungs: Clear to auscultation bilaterally. No wheezes, rales, or rhonchi. Chest nontender. Normal work of breathing, no accessory muscles used. Heart: S1S2, regular rate and rhythm without overt murmur, gallops, or rubs. No JVD. No peripheral edema Abdomen: Soft, nondistended, nontender. Skin: Intact, warm, dry. No lesions or rashes noted. Hematologic: No petechiae or purpra. Mucosa appropriate color and normal nail bed color and refill. Extremities: Atraumatic, moves all extremities per self without difficulty or deficits, negative for cords or calf pain. Neurovascular unremarkable. Neuro: Awake, alert, oriented. Cranial nerves II through XII unremarkable. Cerebellum unremarkable. Motor and sensory unremarkable throughout. Exam nonfocal. Psychiatric: Mood and affect are appropriate. Normal thought process. Answering questions appropriately. Please note that the patient was seen and evaluated during the 2019 SARS-CoV-2 novel coronavirus pandemic period. Community viral transmission is ongoing at time of this encounter and the emergency department is operating under pandemic response procedures. Medical Decision Making: Patient is a 26-year-old male who presents to the emergency room with complaints of dental abscess to the right upper dental line. Patient states he gets dental abscesses frequently and since being evaluated last in our emergency room for dental abscess was seen by a dentist. He was informed he would need a root canal but for some reason or another did not want to follow through. Patient is very agitated and rocking back and forth. Reviewing the patient's previous ER visits this odd behavior is not unusual for him. I do note that he had a allergic reaction to tramadol previously. He did fare well with the Augmentin and stated it did improve the abscess. He is requesting to be "knocked out". I will do oral nerve block with 1% lidocaine. This was done with consent and reviewing of expectations for pain management. 1 cc of 1% lidocaine was injected into the buccal fold. Patient tolerated well and was watched for 30 nminutes. The abscess is not large enought to drain. But he did get good pain relief. I have talked with the patient about today's f indings, in addition to providing specific details for plan of care. Reassessment at the time of disposition demonstrates that the patient is in no acute distress. The patient is stable for discharge, counseling was provided and we discussed in great detail signs and symptoms that would prompt them to return to the Emergency Department. Medication, follow up and supportive care measures were reviewed and discussed. Voices understanding and is agreeable to plan of care. Denies any further questions or concerns at this time. Diagnostics: None Therapeutics: Dental balls, 1% lidocaine, Augmentin Prescription: Augmentin Impression: Dental abscess Plan: 1. You were evaluated today on an emergent basis. Your right upper tooth is infected. Please take the antibiotic as directed and use medications as prescribed. 2. Tylenol and/or ibuprofen as needed for pain management. "Tooth Balls" have been given to you; apply along the gumline every 2-3 hours as needed. Do not swallow these; external use only. 3. We encourage you to follow up with a dentist for re-evaluation and further care/management. 4. If your symptoms should worsen, new symptoms develop or any of the signs and symptoms we discussed should arise please return to the emergency room or call 911 (if needed). Definitive disposition and diagnosis as appropriate pending reevaluation and review of above. Right Jaw Pain Score (Numeric/FACES): 8 - Related Data Allergies Allergy/AdvReac Type Severity Reaction Status Date / Time Penicillins Allergy Nausea and Verified 10/02/21 09:42 Vomiting tramadol AdvReac Vomiting Verified 10/02/21 09:43 Home Meds: Home Meds Amoxicillin/Clavulanate K [Augmentin 875-125 MG] 1 tab PO BID 10 Days #20 tablet 10/02/21 [Rx] Past Medical History HEENT History: Reports: None Cardiovascular History: Reports: None Respiratory History: Reports: None Gastrointestinal History: Reports: None Genitourinary History: Reports: None Musculoskeletal History: Reports: None Neurological History: Reports: None Psychiatric History: Reports: None Endocrine/Metabolic History: Reports: None Hematologic History: Reports: None Oncologic (Cancer) History: Reports: None Dermatologic History: Reports: Other (See Below) Other Dermatologic History: I&D of abscess - Infectious Disease History Infectious Disease History: Reports: Scarlet Fever - Past Surgical History GI Surgical History: Reports: Other (See Below) Other GI Surgeries/Procedures: inguinal Male Surgical History: Reports: None Musculoskeletal Surgical History: Reports: None Social & Family History - Family History Family Medical History: No Pertinent Family History Cardiac: Reports: CAD Endocrine/Metabolic: Reports: Diabetes, Type I - Caffeine Use Caffeine Use: Reports: None ED ROS ENT - Review of Systems Review Of Systems: Comprehensive ROS is negative, except as noted in HPI. ED EXAM, ENT - Physical Exam Exam: See Below (See dictation) Course - Vital Signs Last Recorded V/S: Last Vital Signs Temp 97.4 F 10/02/21 09:43 Pulse 94 10/02/21 09:43 Resp 18 10/02/21 09:43 BP 132/55 L 10/02/21 09:43 Pulse Ox 97 10/02/21 09:43 - Orders/Labs/Meds Meds: Medications Discontinued Medications Generic Name Dose Route Start Last Admin Trade Name Freira PRN Reason Stop Dose Admin Amoxicillin/Clavulanate Potassium 1 tab 10/02/21 09:56 10/02/21 10:05 Amoxicillin/Clavulanate K 875-125 Mg Tab PO 10/02/21 09:57 1 tab ONETIME ONE Administration Benzocaine 2 each 10/02/21 09:43 10/02/21 10:05 Benzocaine 20% Topical Healy Ud MUCMEM 10/02/21 09:44 2 each ONETIME ONE Administration Lidocaine HCl 15 ml 10/02/21 09:43 10/02/21 10:05 Lidocaine 2% Viscous Solution 15 Ml Cup PO 10/02/21 09:44 15 ml ONETIME ONE Administration Lidocaine HCl 2 ml 10/02/21 09:58 10/02/21 10:05 Lidocaine 1% Pf 2 Ml Sdv INJECT 10/02/21 09:59 2 ml ONETIME ONE Administration Departure - Departure Time of Disposition: 10:30 Disposition: Home, Self-Care 01 Clinical Impression: Dental abscess - Discharge Information Prescriptions: Amoxicillin/Clavulanate K [Augmentin 875-125 MG] 1 tab PO BID 10 Days #20 tablet Instructions: Dental Abscess, [id number] Referrals: PCP,None [Primary Care Provider] - Forms: ED Department Discharge Additional Instructions: The following information is given to patients seen in the emergency department who are being discharged to home. This information is to outline your options for follow-up care. We provide all patients seen in our emergency department with a follow-up referral. The need for follow-up, as well as the timing and circumstances, are variable depending upon the specifics of your emergency department visit. If you don't have a primary care physician on staff, we will provide you with a referral. We always advise you to contact your personal physician following an emergency department visit to inform them of the circumstance of the visit and for follow-up with them and/or the need for any referrals to a consulting specialist. The emergency department will also refer you to a specialist when appropriate. This referral assures that you have the opportunity for follow-up care with a specialist. All of these measure are taken in an effort to provide you with optimal care, which includes your follow-up. Under all circumstances we always encourage you to contact your private physician who remains a resource for coordinating your care. When calling for follow-up care, please make the office aware that this follow-up is from your recent emergency room visit. If for any reason you are refused follow-up, please contact the [facility] Emergency Department at and asked to speak to the emergency department charge nurse. [facility] [address] [place] [id number] [address] Thank you for choosing the [facility] emergency department in [place] for your medical needs today. It was a pleasure caring for you. Today you were seen in the emergency department for dental abscess. Your prescription was electronically sent to: [place] pharmacy 1. You were evaluated today on an emergent basis. Your right upper tooth is infected. Please take the antibiotic as directed and use medications as prescribed. 2. Tylenol and/or ibuprofen as needed for pain management. "Tooth Balls" have been given to you; apply along the gumline every 2-3 hours as needed. Do not swallow these; external use only. 3. We encourage you to follow up with a dentist for re-evaluation and further care/management. 4. If your symptoms should worsen, new symptoms develop or any of the signs and symptoms we discussed should arise please return to the emergency room or call 911 (if needed). Sepsis Event Note (ED) - Focused Exam Vital Signs: Vital Signs Temp Pulse Resp BP Pulse Ox 10/02/21 09:43 97.4 F 94 18 132/55 L 97
[2021-10-02] MEDS ORDERED: Amoxicillin/Clavulanate K 875-125 MG Tab PO ONE (09:56)
[2021-10-02] MEDS ORDERED: Lidocaine 1% PF 2 ML SDV INJECT ONE (09:58)
== END 2021-10-02 10:39 | disposition home or self-care (01) ==
LOC: MW.ED 09:36
DX: K04.7 Periapical abscess without sinus (principal); Z88.0 Allergy status to penicillin; Z88.5 Allergy status to narcotic agent
CPT/HCPCS: 99282; A9270

== ENCOUNTER 2021-10-10 23:34 | Emergency (ER) | payer BC ==
--- NOTE | 2021-10-11 00:22 | EDM.PDOC ---
ED HPI GENERAL MEDICAL PROBLEM - General Chief Complaint: Respiratory Problem Stated Complaint: DIFFICULTY BREATHING, ABDOMINAL PAIN Time Seen by Provider: 10/10/21 23:44 - History of Present Illness INITIAL COMMENTS - FREE TEXT/NARRATIVE: HISTORY AND PHYSICAL: History of present illness: This is a 26-year-old gentleman with no significant past medical history who does smoke cigarettes who presents ER today secondary to nasal congestion, midepigastric abdominal pain, muscle aches and just not feeling well. Patient denies any recent fevers, shakes, chills. Patient denies any cough cold or rhinorrhea. Patient reports no vomiting or diarrhea. Patient reports he been tolerating p.o. solids and liquids well. Patient reports he had nasal congestion for several days and is having hard time breathing out of his nose. Patient has not had his Covid vaccine. Review of systems: As per history of present illness and below otherwise all systems reviewed and negative. Past medical history: As per history of present illness and as reviewed below otherwise noncontributory. Surgical history: As per history of present illness and as reviewed below otherwise noncontributory. Social history: No reported history of drug abuse. Family history: As per history of present illness and as reviewed below otherwise noncontributory. Physical exam: This patient was seen and evaluated during the 2019 SARS-CoV-2 novel coronavirus pandemic period. Community viral transmission is ongoing at time of this encounter and the emergency department is operating under pandemic response procedures. Constitutional: Patient is oriented to person, place, and time. Appears well- developed and well-nourished. No distress. HEENT: Moist mucous membranes Head: Normocephalic and atraumatic Eyes: Right eye exhibits no discharge. Left eye exhibits no discharge. No scleral icterus Neck: Normal range of motion. No tracheal deviation present. Cardiovascular: Normal rate and regular rhythm. Pulmonary: Effort normal, no respiratory distress. Abdominal: No distention Musculoskeletal: Normal range of motion Neurologic: Alert and oriented to person, place and time. Skin: [place], warm and dry. Psychiatric: Normal mood and affect. Behavior is normal. Judgment and thought content normal. Nursing note and vital signs have been reviewed Lungs are clear without any wheezing rales or rhonchi. Oropharynx is clear with out any erythema or exudates. Heart is regular rate and rhythm. Diagnostics: Pulse ox 99% on room air Therapeutics: [] Assessment and plan: 26-year-old gentleman who presents ER today with viral illness. Patient will be checked for Covid and influenza will be reassessed. Definitive disposition and diagnosis as appropriate pending reevaluation and review of above. Middle Abdomen Pain Score (Numeric/FACES): 4 - Related Data Allergies Allergy/AdvReac Type Severity Reaction Status Date / Time Penicillins Allergy Nausea and Verified 10/10/21 23:41 Vomiting tramadol AdvReac Vomiting Verified 10/10/21 23:41 Home Meds: Home Meds Amoxicillin/Clavulanate K [Augmentin 875-125 MG] 1 tab PO BID 10 Days #20 tablet 10/02/21 [Rx] Azithromycin [Zithromax] 250 mg PO DAILY #4 tablet 10/11/21 [Rx] Past Medical History HEENT History: Reports: Other (See Below) Other HEENT History: ongoing dental problems Cardiovascular History: Reports: None Respiratory History: Reports: None Gastrointestinal History: Reports: None Genitourinary History: Reports: None Musculoskeletal History: Reports: None Neurological History: Reports: None Psychiatric History: Reports: None Endocrine/Metabolic History: Reports: None Hematologic History: Reports: None Oncologic (Cancer) History: Reports: None Dermatologic History: Reports: Other (See Below) Other Dermatologic History: I&D of abscess - Infectious Disease History Infectious Disease History: Reports: Scarlet Fever - Past Surgical History GI Surgical History: Reports: Other (See Below) Other GI Surgeries/Procedures: inguinal Male Surgical History: Reports: None Musculoskeletal Surgical History: Reports: None Social & Family History - Family History Family Medical History: No Pertinent Family History Cardiac: Reports: CAD Endocrine/Metabolic: Reports: Diabetes, Type I - Caffeine Use Caffeine Use: Reports: Energy Drinks, Soda - Recreational Drug Use Recreational Drug Type: Reports: Marijuana/Hashish ED ROS GENERAL - Review of Systems Review Of Systems: See Below ED EXAM, GENERAL - Physical Exam Exam: See Below Course - Vital Signs Last Recorded V/S: Last Vital Signs Temp 98.3 F 10/10/21 23:41 Pulse 70 10/10/21 23:41 Resp 20 10/10/21 23:41 BP 127/74 10/10/21 23:41 Pulse Ox 97 10/10/21 23:41 - Orders/Labs/Meds Labs: Laboratory Tests 11/23/21 Range/Units 23:50 Influenza Type A RNA NEGATIVE (NEGATIVE) Influenza Type B RNA NEGATIVE (NEGATIVE) SARS-CoV-2 RNA (ANGÉLICA) NEGATIVE (NEGATIVE) Departure - Departure Time of Disposition: 01:32 Disposition: Home, Self-Care 01 Condition: Good Clinical Impression: Sinusitis - Discharge Information Instructions: Sinusitis, Adult, [id number] Referrals: PCP,None [Primary Care Provider] - Forms: ED Department Discharge Additional Instructions: You were seen and evaluated in ER today for signs and symptoms consistent with sinusitis. Your Covid influenza tests are negative. You are given a dose of Zithromax here in the ED and you will be given a prescription for Zithromax to take as an antibiotic to treat your sinusitis. Please make an appointment see your family doctor next week for reevaluation. The following information is given to patients seen in the emergency department who are being discharged to home. This information is to outline your options for follow-up care. We provide all patients seen in our emergency department with a follow-up referral. The need for follow-up, as well as the timing and circumstances, are variable depending upon the specifics of your emergency department visit. If you don't have a primary care physician on staff, we will provide you with a referral. We always advise you to contact your personal physician following an emergency department visit to inform them of the circumstance of the visit and for follow-up with them and/or the need for any referrals to a consulting specialist. The emergency department will also refer you to a specialist when appropriate. This referral assures that you have the opportunity for follow-up care with a specialist. All of these measure are taken in an effort to provide you with optimal care, which includes your follow-up. Under all circumstances we always encourage you to contact your private physician who remains a resource for coordinating your care. When calling for follow-up care, please make the office aware that this follow-up is from your recent emergency room visit. If for any reason you are refused follow-up, please contact the [facility] Emergency Department at and asked to speak to the emergency department charge nurse. [facility] [place] [facility] [address] [place] [id number] [facility] [address] [place] [address] Sepsis Event Note (ED) - Evaluation Sepsis Screening Result: No Definite Risk - Focused Exam Vital Signs: Vital Signs Temp Pulse Resp BP Pulse Ox 10/10/21 23:41 98.3 F 70 20 127/74 97
[2021-10-11 00:44] LABS: CORONAVIRUS COVID-19 NAA NEGATIVE (NEGATIVE); INFLUENZA A NAA NEGATIVE (NEGATIVE); INFLUENZA B NAA NEGATIVE (NEGATIVE)
[2021-10-11] MEDS ORDERED: Azithromycin 250 MG Tab PO ONE (01:33)
== END 2021-10-11 01:42 | disposition home or self-care (01) ==
LOC: MW.ED 23:34
DX: J32.9 Chronic sinusitis, unspecified (principal); Z88.0 Allergy status to penicillin; Z88.5 Allergy status to narcotic agent; Z20.822 Contact with and (suspected) exposure to COVID-19
CPT/HCPCS: 0240U; 99283; A9270

== ENCOUNTER 2021-10-24 02:35 | Emergency (ER) | payer BC ==
[2021-10-24] MEDS ORDERED: Lactated Ringers 1,000 ML IV SCH (03:00)
--- NOTE | 2021-10-24 03:32 | PCM.EKG ---
#1 Interpretation EKG Date: 10/24/21 Time: 02:58 Rhythm: NSR Rate (Beats/Min): 70 [place]: Normal P-Wave: Present QRS: Normal ST-T: Normal (Benign Early Repol.) QT: Normal Comparison: No Change (09/17/21) EKG Interpretation Comments: Sinus Rhythm with benign early repolarization.
[2021-10-24 03:40] LABS: ACETAMINOPHEN 17.3 ug/mL; BLOOD UREA NITROGEN,BUN 18 mg/dL (7.0-18.0); CARBON DIOXIDE,CO2 29.5 mmol/L (21.0-32.0); CHLORIDE,CL 103 mmol/L (98-107); GLUCOSE RANDOM 104 mg/dL (74-106); POTASSIUM,K 3.6 mmol/L (3.5-5.1); SODIUM,NA 139 mmol/L (136-148)
--- NOTE | 2021-10-24 03:52 | EDM.PDOC ---
ED HPI GENERAL MEDICAL PROBLEM - General Chief Complaint: Behavioral/Psych Stated Complaint: OVERDOSE Time Seen by Provider: 10/24/21 02:39 - History of Present Illness INITIAL COMMENTS - FREE TEXT/NARRATIVE: CHIEF COMPLAINT(S): Suicidal ideation/overdose HISTORY OF PRESENT ILLNESS: This is a 26-year-old man with a past medical history of bipolar on unknown medication who comes to the emergency department with a chief complaint of suicidal ideation and overdose. The patient is brought in by EMS. The patient states that he does not want to live and took 1 tablet of Xanax, 4 tablets of aspirin and 3 tablets of his bipolar medication last night. He states that he was drinking alcohol prior but has not had any since. He currently denies any other's symptoms. He denies any hallucinations, homicidal ideation. REVIEW OF SYSTEMS: Constitutional: Denies fever, chills. Eyes: Denies eye pain Ears, Nose, Mouth, & Throat: Denies earache Cardiovascular: Denies chest pain Respiratory: Denies shortness of breath Gastrointestinal: Denies Nausea, vomiting, diarrhea, hematochezia. Genitourinary: Denies hematuria Skin:Denies a rash MSK: Denies joint pain Neurological: Denies blurred vision, numbness, tingling, weakness Psychiatric: Positive for suicidal ideation with attempt. PAST MEDICAL HISTORY: As per history of present illness and as reviewed below otherwise noncontributory. SURGICAL HISTORY: As per history of present illness and as reviewed below otherwise noncontributory. SOCIAL HISTORY: As per history of present illness and as reviewed below otherwise noncontributory. FAMILY HISTORY: As per history of present illness and as reviewed below otherwise noncontributory. EXAMINATION OF ORGAN SYSTEMS/BODY AREAS: Constitutional: Blood pressure is 118/75, heart rate 68, respiratory rate 18 with an oxygen saturation of 98% on room air. Temperature 36.1 General: Young man who does not appear to be in acute distress. Patient is drowsy. Psychiatric: Positive for suicidal ideation and attempt with medication. Eyes: No scleral icterus or conjunctival erythema pupils were 3 mm and reactive bilaterally. Extraocular movements intact. No vertical horizontal nystagmus. ENMT: Moist mucous membranes. No pharyngeal erythema Cardiovascular: Regular, rate, and rhythm. No gallops, murmurs, or rubs. Bilateral upper extremity pulses symmetric and intact. No peripheral edema. No JVD. Respiratory: Lungs clear to auscultation bilaterally. No wheezes, rales, or rhonchi. Gastrointestinal: Soft, non-tender, non-distended. Normoactive bowel sounds Genitourinary: No suprapubic tenderness Musculoskeletal: Normal range of motion. Skin: No lesions or abrasions. Neurological: Alert, GCS 15 MEDICAL DECISION MAKING AND COURSE IN THE ED WITH INTERPRETATION/REVIEW OF DIAGNOSTIC STUDIES: This is a 26-year-old man with a past medical history of bipolar disorder apparently on home medication who comes to the emergency department with suicidal ideation and attempt by taking medications. At this time we did obtain a screening EKG. This was unremarkable. Did reveal benign early repolarization and was unchanged from prior. Given that the patient took aspirin obtain a salicylate level in addition to all other psychiatric clearance labs. We will provide the patient with 1 L of lactated Ringer's bolus and reevaluate. Laboratory: CBC is unremarkable. INR is normal. CMP is unremarkable. Mag nesium is 2.5. Troponin is negative. TSH is normal. Serum salicylates are 5.7, repeat is 5.1, serum Tylenol level is 17.3 and 4-hour Tylenol is 8.2. Serum alcohol is negative. VBG is normal. After labs I did place a psychiatric hold on the patient given his suicidal ideation with attempt. At this time I did contact [facility] in [place] and spoke with Dr. Conte who accepted the patient if the patient's Covid is negative. This was all discussed with the patient. After discussing with the patient that he would be going to [facility] in [place] the patient became agitated and yelling. He was redirectable and his mother was at bedside. At this time the patient's Covid test is negative. I still believe the patient requires inpatient psychiatric evaluation given the suicidal attempt. He will be transferred via ALS ambulance. Laboratory: Covid is negative. Influenza is negative. There is a significant delay in transport as there are no available ambulance services available to transport the patient. Police Department also and available to transport the patient. The patient continued to refuse transport however at this time the patient does have a mental health hold and he requested we speak with [facility] as he has been receiving services there. I did contact [facility] and at this time given that he has already completed a suicide attempt they cannot safely take care of the patient and recommend inpatient management. This was discussed with the patient with police and mother at bedside. DIS[facility]ITION: [facility] pending transport to [facility] via ambulance. CONDITION: Serious PROCEDURES: None FINAL IMPRESSION(S)/DIAGNOSES: 1. Acute suicidal ideation with attempt Alex Madden M.D. chest Pain Score (Numeric/FACES): 5 - Related Data Allergies Allergy/AdvReac Type Severity Reaction Status Date / Time Penicillins Allergy Nausea and Verified 10/10/21 23:41 Vomiting tramadol AdvReac Vomiting Verified 10/10/21 23:41 Past Medical History HEENT History: Reports: Other (See Below) Other HEENT History: ongoing dental problems Cardiovascular History: Reports: None Respiratory History: Reports: None Gastrointestinal History: Reports: None Genitourinary History: Reports: None Musculoskeletal History: Reports: None Neurological History: Reports: None Psychiatric History: Reports: None Endocrine/Metabolic History: Reports: None Hematologic History: Reports: None Oncologic (Cancer) History: Reports: None Dermatologic History: Reports: Other (See Below) Other Dermatologic History: I&D of abscess - Infectious Disease History Infectious Disease History: Reports: Scarlet Fever - Past Surgical History GI Surgical History: Reports: Other (See Below) Other GI Surgeries/Procedures: inguinal Male Surgical History: Reports: None Musculoskeletal Surgical History: Reports: None Social & Family History - Family History Family Medical History: No Pertinent Family History Cardiac: Reports: CAD Endocrine/Metabolic: Reports: Diabetes, Type I - Caffeine Use Caffeine Use: Reports: Energy Drinks, Soda ED ROS GENERAL - Review of Systems Review Of Systems: See Below ED EXAM, GENERAL - Physical Exam Exam: See Below Course - Vital Signs Last Recorded V/S: Last Vital Signs Temp 37.1 C 10/24/21 10:00 Pulse 74 10/24/21 10:30 Resp 16 10/24/21 10:30 BP 105/65 10/24/21 10:30 Pulse Ox 94 L 10/24/21 10:30 - Orders/Labs/Meds Labs: Laboratory Tests 10/24/21 10/24/21 10/24/21 Range/Units 03:05 03:05 03:05 WBC 9.17 (4.0-11.0) K/uL RBC 4.48 L (4.50-5.90) M/uL Hgb 13.5 (13.0-17.0) g/dL Hct 41.4 (38.0-50.0) % MCV 92.4 (80.0-98.0) fL MCH 30.1 (27.0-32.0) pg MCHC 32.6 (31.0-37.0) g/dL RDW Std Deviation 46.1 (28.0-62.0) fl RDW Coeff of Holly 14 (11.0-15.0) % Plt Count 176 (150-400) K/uL MPV 10.50 (7.40-12.00) fL Add Manual Diff YES Neutrophils % (Manual) 43 L (48.0-80.0) % Lymphocytes % (Manual) 39 (16.0-40.0) % Monocytes % (Manual) 14 (0.0-15.0) % Eosinophils % (Manual) 3 (0.0-7.0) % Basophils % (Manual) 1 (0.0-1.5) % Nucleated RBC % 0.0 /100WBC Absolute Seg Neuts 3.9 (1.4-5.7) Lymphocytes # (Manual) 3.6 H (0.6-2.4) Monocytes # (Manual) 1.3 H (0.0-0.8) Eosinophils # (Manual) 0.3 (0.0-0.7) Basophils # (Manual) 0.1 (0.0-0.1) Nucleated RBCs # 0 K/uL INR 1.10 VBG pH (7.31-7.41) VBG pCO2 (41-51) mmHG VBG pO2 mmHG VBG HCO3 (23-28) mEq/L VBG Total CO2 (24-29) mmol/L VBG Base Excess (-2.0-3.0) Sodium 139 (136-148) mmol/L Potassium 3.6 (3.5-5.1) mmol/L Chloride 103 (98-107) mmol/L Carbon Dioxide 29.5 (21.0-32.0) mmol/L BUN 18 (7.0-18.0) mg/dL Creatinine 1.0 (0.8-1.3) mg/dL Est Cr Clr Drug Dosing 120.58 mL/min Estimated GFR (MDRD) > 60.0 ml/min Glucose 104 (74-106) mg/dL Lactic Acid (0.4-2.0) mmol/L Calcium 8.8 (8.5-10.1) mg/dL Magnesium 2.5 H (1.8-2.4) mg/dL Total Bilirubin 0.5 (0.2-1.0) mg/dL AST 15 (15-37) IU/L ALT 11 L (14-63) IU/L Alkaline Phosphatase 56 (46-116) U/L Troponin I < 0.050 (0.000-0.056) ng/mL Total Protein 7.4 (6.4-8.2) g/dL Albumin 3.8 (3.4-5.0) g/dL Globulin 3.6 (2.6-4.0) g/dL Albumin/Globulin Ratio 1.1 (0.9-1.6) TSH, Ultra Sensitive 1.63 (0.36-3.74) uIU/mL Urine Color Urine Appearance Urine pH (5.0-8.0) Ur Specific [place] (1.001-1.035) Urine Protein (NEGATIVE) mg/dL Urine Glucose (UA) (NEGATIVE) mg/dL Urine Ketones (NEGATIVE) mg/dL Urine Occult Blood (NEGATIVE) Urine Nitrite (NEGATIVE) Urine Bilirubin (NEGATIVE) Urine Urobilinogen (<2.0) EU/dL Ur Leukocyte Esterase (NEGATIVE) Salicylates 5.7 (0-20) mg/dL Urine Opiates Screen (NEGATIVE) Ur Oxycodone Screen (NEGATIVE) Urine Methadone Screen (NEGATIVE) Acetaminophen 17.3 ug/mL Ur Barbiturates Screen (NEGATIVE) Ur Phencyclidine Scrn (NEGATIVE) Ur Amphetamine Screen (NEGATIVE) U Methamphetamines Scrn (NEGATIVE) U Benzodiazepines Scrn (NEGATIVE) U Cocaine Metab Screen (NEGATIVE) U Marijuana (THC) Screen (NEGATIVE) Ethyl Alcohol <3 mg/dL Influenza Type A RNA (NEGATIVE) Influenza Type B RNA (NEGATIVE) SARS-CoV-2 RNA (ANGÉLICA) (NEGATIVE) 10/24/21 10/24/21 10/24/21 Range/Units 03:05 04:29 04:29 WBC (4.0-11.0) K/uL RBC (4.50-5.90) M/uL Hgb (13.0-17.0) g/dL Hct (38.0-50.0) % MCV (80.0-98.0) fL MCH (27.0-32.0) pg MCHC (31.0-37.0) g/dL RDW Std Deviation (28.0-62.0) fl RDW Coeff of Holly (11.0-15.0) % Plt Count (150-400) K/uL MPV (7.40-12.00) fL Add Manual Diff Neutrophils % (Manual) (48.0-80.0) % Lymphocytes % (Manual) (16.0-40.0) % Monocytes % (Manual) (0.0-15.0) % Eosinophils % (Manual) (0.0-7.0) % Basophils % (Manual) (0.0-1.5) % Nucleated RBC % /100WBC Absolute Seg Neuts (1.4-5.7) Lymphocytes # (Manual) (0.6-2.4) Monocytes # (Manual) (0.0-0.8) Eosinophils # (Manual) (0.0-0.7) Basophils # (Manual) (0.0-0.1) Nucleated RBCs # K/uL INR VBG pH 7.41 (7.31-7.41) VBG pCO2 41 (41-51) mmHG VBG pO2 135 mmHG VBG HCO3 26 (23-28) mEq/L VBG Total CO2 23 L (24-29) mmol/L VBG Base Excess 1.4 (-2.0-3.0) Sodium (136-148) mmol/L Potassium (3.5-5.1) mmol/L Chloride (98-107) mmol/L Carbon Dioxide (21.0-32.0) mmol/L BUN (7.0-18.0) mg/dL Creatinine (0.8-1.3) mg/dL Est Cr Clr Drug Dosing mL/min Estimated GFR (MDRD) ml/min Glucose (74-106) mg/dL Lactic Acid 0.6 (0.4-2.0) mmol/L Calcium (8.5-10.1) mg/dL Magnesium (1.8-2.4) mg/dL Total Bilirubin (0.2-1.0) mg/dL AST (15-37) IU/L ALT (14-63) IU/L Alkaline Phosphatase (46-116) U/L Troponin I (0.000-0.056) ng/mL Total Protein (6.4-8.2) g/dL Albumin (3.4-5.0) g/dL Globulin (2.6-4.0) g/dL Albumin/Globulin Ratio (0.9-1.6) TSH, Ultra Sensitive (0.36-3.74) uIU/mL Urine Color Urine Appearance Urine pH (5.0-8.0) Ur Specific [place] (1.001-1.035) Urine Protein (NEGATIVE) mg/dL Urine Glucose (UA) (NEGATIVE) mg/dL Urine Ketones (NEGATIVE) mg/dL Urine Occult Blood (NEGATIVE) Urine Nitrite (NEGATIVE) Urine Bilirubin (NEGATIVE) Urine Urobilinogen (<2.0) EU/dL Ur Leukocyte Esterase (NEGATIVE) Salicylates 5.1 (0-20) mg/dL Urine Opiates Screen (NEGATIVE) Ur Oxycodone Screen (NEGATIVE) Urine Methadone Screen (NEGATIVE) Acetaminophen 8.2 ug/mL Ur Barbiturates Screen (NEGATIVE) Ur Phencyclidine Scrn (NEGATIVE) Ur Amphetamine Screen (NEGATIVE) U Methamphetamines Scrn (NEGATIVE) U Benzodiazepines Scrn (NEGATIVE) U Cocaine Metab Screen (NEGATIVE) U Marijuana (THC) Screen (NEGATIVE) Ethyl Alcohol mg/dL Influenza Type A RNA (NEGATIVE) Influenza Type B RNA (NEGATIVE) SARS-CoV-2 RNA (ANGÉLICA) (NEGATIVE) 10/24/21 10/24/21 10/24/21 Range/Units 04:55 05:55 05:55 WBC (4.0-11.0) K/uL RBC (4.50-5.90) M/uL Hgb (13.0-17.0) g/dL Hct (38.0-50.0) % MCV (80.0-98.0) fL MCH (27.0-32.0) pg MCHC (31.0-37.0) g/dL RDW Std Deviation (28.0-62.0) fl RDW Coeff of Holly (11.0-15.0) % Plt Count (150-400) K/uL MPV (7.40-12.00) fL Add Manual Diff Neutrophils % (Manual) (48.0-80.0) % Lymphocytes % (Manual) (16.0-40.0) % Monocytes % (Manual) (0.0-15.0) % Eosinophils % (Manual) (0.0-7.0) % Basophils % (Manual) (0.0-1.5) % Nucleated RBC % /100WBC Absolute Seg Neuts (1.4-5.7) Lymphocytes # (Manual) (0.6-2.4) Monocytes # (Manual) (0.0-0.8) Eosinophils # (Manual) (0.0-0.7) Basophils # (Manual) (0.0-0.1) Nucleated RBCs # K/uL INR VBG pH (7.31-7.41) VBG pCO2 (41-51) mmHG VBG pO2 mmHG VBG HCO3 (23-28) mEq/L VBG Total CO2 (24-29) mmol/L VBG Base Excess (-2.0-3.0) Sodium (136-148) mmol/L Potassium (3.5-5.1) mmol/L Chloride (98-107) mmol/L Carbon Dioxide (21.0-32.0) mmol/L BUN (7.0-18.0) mg/dL Creatinine (0.8-1.3) mg/dL Est Cr Clr Drug Dosing mL/min Estimated GFR (MDRD) ml/min Glucose (74-106) mg/dL Lactic Acid (0.4-2.0) mmol/L Calcium (8.5-10.1) mg/dL Magnesium (1.8-2.4) mg/dL Total Bilirubin (0.2-1.0) mg/dL AST (15-37) IU/L ALT (14-63) IU/L Alkaline Phosphatase (46-116) U/L Troponin I (0.000-0.056) ng/mL Total Protein (6.4-8.2) g/dL Albumin (3.4-5.0) g/dL Globulin (2.6-4.0) g/dL Albumin/Globulin Ratio (0.9-1.6) TSH, Ultra Sensitive (0.36-3.74) uIU/mL Urine Color YELLOW Urine Appearance CLEAR Urine pH 6.5 (5.0-8.0) Ur Specific [place] 1.020 (1.001-1.035) Urine Protein NEGATIVE (NEGATIVE) mg/dL Urine Glucose (UA) NEGATIVE (NEGATIVE) mg/dL Urine Ketones TRACE H (NEGATIVE) mg/dL Urine Occult Blood NEGATIVE (NEGATIVE) Urine Nitrite NEGATIVE (NEGATIVE) Urine Bilirubin NEGATIVE (NEGATIVE) Urine Urobilinogen 0.2 (<2.0) EU/dL Ur Leukocyte Esterase NEGATIVE (NEGATIVE) Salicylates (0-20) mg/dL Urine Opiates Screen NEGATIVE (NEGATIVE) Ur Oxycodone Screen NEGATIVE (NEGATIVE) Urine Methadone Screen NEGATIVE (NEGATIVE) Acetaminophen ug/mL Ur Barbiturates Screen NEGATIVE (NEGATIVE) Ur Phencyclidine Scrn NEGATIVE (NEGATIVE) Ur Amphetamine Screen NEGATIVE (NEGATIVE) U Methamphetamines Scrn NEGATIVE (NEGATIVE) U Benzodiazepines Scrn NEGATIVE (NEGATIVE) U Cocaine Metab Screen NEGATIVE (NEGATIVE) U Marijuana (THC) Screen NEGATIVE (NEGATIVE) Ethyl Alcohol mg/dL Influenza Type A RNA NEGATIVE (NEGATIVE) Influenza Type B RNA NEGATIVE (NEGATIVE) SARS-CoV-2 RNA (ANGÉLICA) NEGATIVE (NEGATIVE) Meds: Medications Discontinued Medications Generic Name Dose Route Start Last Admin Trade Name Freq PRN Reason Stop Dose Admin Lactated Ringer's 1,000 mls @ 999 mls/hr 10/24/21 03:00 10/24/21 03:12 Ringers, Lactated IV 999 mls/hr ASDIRECTED KERMIT Administration Departure - Departure Time of Disposition: 07:00 Disposition: DC/Tfer to Acute Hospital 02 Condition: Serious Clinical Impression: Suicide attempt - Discharge Information Referrals: PCP,None [Primary Care Provider] - Forms: ED Department Discharge Sepsis Event Note (ED) - Evaluation Sepsis Screening Result: No Definite Risk - Focused Exam Vital Signs: Vital Signs Temp Pulse Resp BP Pulse Ox 10/24/21 10:30 74 16 105/65 94 L 10/24/21 10:00 37.1 C 78 18 120/78 97 10/24/21 09:30 37.1 C 80 19 125/74 99 10/24/21 09:00 36.9 C 65 18 109/65 98 10/24/21 08:30 37.1 C 64 17 120/49 L 99 10/24/21 08:00 36.6 C 65 17 124/55 L 99 10/24/21 07:30 36.9 C 64 18 101/40 L 99
[2021-10-24 04:55] LABS: ACETAMINOPHEN 8.2 ug/mL
[2021-10-24 05:43] LABS: CORONAVIRUS COVID-19 NAA NEGATIVE (NEGATIVE); INFLUENZA A NAA NEGATIVE (NEGATIVE); INFLUENZA B NAA NEGATIVE (NEGATIVE)
== END 2021-10-24 10:54 ==
LOC: MW.ED 02:35
DX: T42.4X2A Poisoning by benzodiazepines, intentional self-harm, initial encounter (principal); T39.012A Poisoning by aspirin, intentional self-harm, initial encounter; Z88.0 Allergy status to penicillin; Z88.5 Allergy status to narcotic agent; Z20.822 Contact with and (suspected) exposure to COVID-19
CPT/HCPCS: 0240U; 36415; 80053; 80143; 80179; 80305; 80307; 81003; 82803; 83605; 83735; 84443; 84484; 85025; 85610; 99285; J7120

== ENCOUNTER 2022-04-13 10:03 | Emergency (ER) | payer SELFPAY ==
[2022-04-13 12:06] LABS: C. TRACHOMATIS BY PCR NOT DETECTED; N. GONORRHOEAE BY PCR NOT DETECTED
== END 2022-04-13 11:09 | disposition home or self-care (01) ==
LOC: MW.ED 10:03
DX: Z11.3 Encounter for screening for infections with a predominantly sexual mode of transmission (principal); Z88.0 Allergy status to penicillin; Z88.5 Allergy status to narcotic agent
CPT/HCPCS: 87491; 87591; 99282; 99283

== ENCOUNTER 2022-04-20 23:18 | Emergency (ER) | payer BC ==
[2022-04-20] MEDS ORDERED: Azithromycin 250 MG Tab PO ONE (23:35)
== END 2022-04-20 23:54 | disposition home or self-care (01) ==
LOC: MW.ED 23:18
DX: R05.9 Cough, unspecified (principal); Z88.0 Allergy status to penicillin; Z88.5 Allergy status to narcotic agent
CPT/HCPCS: 99283; A9270

== ENCOUNTER 2022-07-10 15:01 | Emergency (ER) | payer BC | END 2022-07-10 15:49 | disposition home or self-care (01) | LOC: MW.ED 15:01 | DX: S69.92XA Unspecified injury of left wrist, hand and finger(s), initial encounter (principal); Z88.0 Allergy status to penicillin; Z88.5 Allergy status to narcotic agent; Y09 Assault by unspecified means | CPT/HCPCS: 73110-26-LT; 73110-LT; 99283 ==

== ENCOUNTER 2022-09-24 15:39 | Emergency (ER) | payer BC | END 2022-09-24 16:04 | disposition left against medical advice (07) | LOC: MW.ED 15:39 | DX: F31.9 Bipolar disorder, unspecified (principal); Z88.0 Allergy status to penicillin; Z88.5 Allergy status to narcotic agent | CPT/HCPCS: 99283 ==

== ENCOUNTER 2023-06-09 12:47 | Emergency (ER) | payer BC ==
[2023-06-09] MEDS ORDERED: Sodium Chloride 0.9% 1,000 ML IV ONE (13:01)
[2023-06-09] MEDS ORDERED: Ondansetron 4 MG/2 ML SDV IVPUSH ONE (13:01)
[2023-06-09] MEDS ORDERED: Famotidine 20 MG/2 ML SDV IVPUSH ONE (13:01)
[2023-06-09 13:09] LABS: BASOPHILS ABSOLUTE AUTO 0.1 K/uL (0.0-0.1); BASOPHILS PERCENT AUTO 0.3 % (0.0-1.5); EOSINOPHILS ABSOLUTE AUTO 0.1 K/uL (0.0-0.7); EOSINOPHILS PERCENT AUTO 0.5 % (0.0-7.0); HEMATOCRIT 42.3 % (38.0-50.0); HEMOGLOBIN 13.8 g/dL (13.0-17.0); LYMPHOCYTES ABSOLUTE AUTO 2.5 K/uL (0.6-2.4); LYMPHOCYTES PERCENT AUTO 15.5 % (16.0-40.0); MEAN CORPUSCULAR HEMOGLOBIN 29.7 pg (27.0-32.0); MEAN CORPUSCULAR HGB CONC 32.6 g/dL (31.0-37.0); MONOCYTES PERCENT AUTO 6.4 % (0.0-15.0); NEUTROPHILS ABSOLUTE AUTO 12.5 K/uL (1.4-5.7); NEUTROPHILS PERCENT AUTO 77.3 % (48.0-80.0); NRBC ABSOLUTE 0 K/uL; PLATELET COUNT,PLT 259 K/uL (150-400); RED BLOOD CELL COUNT 4.65 M/uL (4.50-5.90); WHITE BLOOD CELL COUNT,WBC 16.16 K/uL (4.0-11.0)
[2023-06-09 13:33] LABS: A/G RATIO 1.2 (0.9-1.6); ALANINE AMINOTRANSFERASE,ALT 14 IU/L (14-63); ALBUMIN 4.2 g/dL (3.4-5.0); ALKALINE PHOSPHATASE 67 U/L (46-116); ASPARTATE AMNIOTRANSFERASE,AST 22 IU/L (15-37); BILIRUBIN TOTAL 0.6 mg/dL (0.2-1.0); BLOOD UREA NITROGEN,BUN 13 mg/dL (7.0-18.0); CALCIUM 9.2 mg/dL (8.5-10.1); CHLORIDE,CL 104 mmol/L (98-107); ESTIMATED GFR 107 mL/min (>60); GLUCOSE RANDOM 119 mg/dL (74-106); LIPASE 75 U/L (73-393); MAGNESIUM 1.9 mg/dL (1.8-2.4); PROTEIN TOTAL,TP 7.8 g/dL (6.4-8.2); SODIUM,NA 142 mmol/L (136-148)
== END 2023-06-09 14:15 | disposition home or self-care (01) ==
LOC: MW.ED 12:47
DX: F10.10 Alcohol abuse, uncomplicated (principal); K29.20 Alcoholic gastritis without bleeding; Z88.0 Allergy status to penicillin; Z88.5 Allergy status to narcotic agent
CPT/HCPCS: 36415; 80053; 83690; 83735; 85025; 96361; 96374; 96375; 99284; J2405; J3490; J7030

== ENCOUNTER 2023-08-07 01:23 | Observation (INO) | payer SELFPAY ==
[2023-08-07] MEDS ORDERED: HYDROmorphone 2 MG/ML Syringe IVPUSH ONE ×2 (02:49→05:06)
[2023-08-07] MEDS ORDERED: Benzocaine 20% Topical Spray UD ONE (02:49)
[2023-08-07] MEDS ORDERED: HYDROmorphone 1 MG/ML Syringe ONE ×2 (02:49→05:02)
[2023-08-07] MEDS ORDERED: Benzocaine 20% Topical Spray UD MUCMEM ONE (02:50)
[2023-08-07] MEDS ORDERED: Clindamycin Phosphate in D5W 600 MG in Premix Bag 1 BAG IV ONE ×2 (02:50)
[2023-08-07] MEDS ORDERED: Lidocaine 2% Viscous Solution 15 ML UD ONE (03:31)
[2023-08-07] MEDS ORDERED: Lidocaine 2% Viscous Solution 15 ML UD PO STA (03:33)
[2023-08-07] MEDS ORDERED: Sodium Chloride 0.9% 1,000 ML IV STA (05:36)
[2023-08-07] MEDS ORDERED: Ketorolac 30 MG/ML SDV IVPUSH ONE (05:41)
[2023-08-07] MEDS ORDERED: Iopamidol 755 MG/ML 500 ML Multipack Bottle IVPUSH STA (05:58)
[2023-08-07 07:04] LABS: BASOPHILS PERCENT AUTO 0.3 % (0.0-1.5); EOSINOPHILS ABSOLUTE AUTO 0.2 K/uL (0.0-0.7); EOSINOPHILS PERCENT AUTO 1.6 % (0.0-7.0); HEMATOCRIT 42.9 % (38.0-50.0); LYMPHOCYTES ABSOLUTE AUTO 2.5 K/uL (0.6-2.4); LYMPHOCYTES PERCENT AUTO 23.8 % (16.0-40.0); MEAN CORPUSCULAR HEMOGLOBIN 30.4 pg (27.0-32.0); MEAN CORPUSCULAR HGB CONC 32.6 g/dL (31.0-37.0); MEAN CORPUSCULAR VOLUME 93.3 fL (80.0-98.0); MONOCYTES ABSOLUTE AUTO 1.4 K/uL (0.0-0.8); MONOCYTES PERCENT AUTO 13.3 % (0.0-15.0); NEUTROPHILS ABSOLUTE AUTO 6.3 K/uL (1.4-5.7); NRBC ABSOLUTE 0 K/uL; PLATELET COUNT,PLT 238 K/uL (150-400); WHITE BLOOD CELL COUNT,WBC 10.38 K/uL (4.0-11.0)
[2023-08-07 07:06] LABS: A/G RATIO 1.1 (0.9-1.6); ALBUMIN 4.1 g/dL (3.4-5.0); BILIRUBIN TOTAL 0.4 mg/dL (0.2-1.0); CALCIUM 8.8 mg/dL (8.5-10.1); CARBON DIOXIDE,CO2 28.7 mmol/L (21.0-32.0); EST CRCL DRUG DOSING (CG) 117.64 mL/min; POTASSIUM,K 3.3 mmol/L (3.5-5.1); PROTEIN TOTAL,TP 7.9 g/dL (6.4-8.2)
[2023-08-07] MEDS ORDERED: Ampicillin/Sulbactam Na 3 GM in Sodium Chloride 0.9% 100 ML IV SCH ×2 (09:30→12:00)
[2023-08-07] MEDS ORDERED: Potassium Chloride 20 MEQ Tab.ER PO ONE (11:02)
[2023-08-07] MEDS: Ampicillin/Sulbactam Na 3 GM in Sodium Chloride 0.9% 100 ML IV SCH ×3 (11:33→23:34)
[2023-08-07] MEDS ORDERED: Polyethylene Glycol 3350 Powder 17 GM Packet PO SCH (14:00)
[2023-08-07] MEDS ORDERED: Polyethylene Glycol 3350 Powder 17 GM Packet PO PRN (14:30)
[2023-08-07] MEDS: Acetaminophen 325 MG Tab PO PRN (15:52)
[2023-08-08] MEDS ORDERED: Sodium Chloride 0.9% 100 ML ONE (06:08)
[2023-08-08] MEDS: Ampicillin/Sulbactam Na 3 GM in Sodium Chloride 0.9% 100 ML IV SCH (06:18)
[2023-08-08 06:40] LABS: BASOPHILS PERCENT AUTO 0.4 % (0.0-1.5); EOSINOPHILS ABSOLUTE AUTO 0.3 K/uL (0.0-0.7); EOSINOPHILS PERCENT AUTO 3.7 % (0.0-7.0); HEMATOCRIT 41.9 % (38.0-50.0); HEMOGLOBIN 13.2 g/dL (13.0-17.0); LYMPHOCYTES ABSOLUTE AUTO 2.5 K/uL (0.6-2.4); MEAN CORPUSCULAR HEMOGLOBIN 29.3 pg (27.0-32.0); MEAN CORPUSCULAR HGB CONC 31.5 g/dL (31.0-37.0); MEAN CORPUSCULAR VOLUME 93.1 fL (80.0-98.0); MONOCYTES PERCENT AUTO 13.5 % (0.0-15.0); NEUTROPHILS ABSOLUTE AUTO 3.4 K/uL (1.4-5.7); NEUTROPHILS PERCENT AUTO 47.4 % (48.0-80.0); NRBC ABSOLUTE 0 K/uL; PLATELET COUNT,PLT 237 K/uL (150-400); WHITE BLOOD CELL COUNT,WBC 7.09 K/uL (4.0-11.0)
[2023-08-08 07:07] LABS: ALBUMIN 3.5 g/dL (3.4-5.0); BILIRUBIN TOTAL 0.3 mg/dL (0.2-1.0); CALCIUM 8.8 mg/dL (8.5-10.1); CARBON DIOXIDE,CO2 30.6 mmol/L (21.0-32.0); EST CRCL DRUG DOSING (CG) 117.64 mL/min; POTASSIUM,K 4.2 mmol/L (3.5-5.1); PROTEIN TOTAL,TP 7.1 g/dL (6.4-8.2)
[2023-08-08] MEDS: Acetaminophen 325 MG Tab PO PRN (08:12)
[2023-08-08] MEDS ORDERED: Amoxicillin/Clavulanate K 875-125 MG Tab PO ONE (11:33)
== END 2023-08-08 11:55 | disposition home or self-care (01) ==
LOC: MW.ED 01:23 → MW.MS 05:45
PROVIDERS: ADMIT Internal Medicine; ATTEND Internal Medicine
DX: K04.7 Periapical abscess without sinus (principal); E87.6 Hypokalemia; Z88.0 Allergy status to penicillin; Z88.5 Allergy status to narcotic agent; Z87.891 Personal history of nicotine dependence
CPT/HCPCS: 36415; 41800; 70487; 80053; 85025; 96365; 96375; 96376; 99284; A9270; J0295; J1170; J1885; J3490; J7030; Q9967; 96366; 96367; 99282; G0378

== ENCOUNTER 2023-09-06 19:58 | Emergency (ER) | payer SELFPAY ==
[2023-09-06] MEDS ORDERED: oxyCODONE 5 MG Tab PO STA (21:26)
[2023-09-06] MEDS ORDERED: Clindamycin HCl 150 MG Cap PO STA (21:26)
== END 2023-09-06 22:00 | disposition home or self-care (01) ==
LOC: MW.ED 19:58
DX: K04.7 Periapical abscess without sinus (principal); K03.81 Cracked tooth; F17.210 Nicotine dependence, cigarettes, uncomplicated; Z88.0 Allergy status to penicillin; Z88.5 Allergy status to narcotic agent
CPT/HCPCS: 99282; A9270; 99283

== ENCOUNTER 2023-10-07 07:59 | Emergency (ER) | payer SELFPAY ==
[2023-10-07] MEDS ORDERED: Ketorolac 30 MG/ML SDV IVPUSH ONE (08:07)
[2023-10-07] MEDS ORDERED: Sodium Chloride 0.9% 1,000 ML IV ONE (08:07)
[2023-10-07] MEDS ORDERED: Ondansetron 4 MG/2 ML SDV IVPUSH ONE (08:07)
[2023-10-07 08:42] LABS: BASOPHILS ABSOLUTE AUTO 0.04 K/uL (0.00-0.20); BASOPHILS PERCENT AUTO 0.3 % (0.0-1.0); EOSINOPHILS ABSOLUTE AUTO 0.01 K/uL (0.00-0.45); EOSINOPHILS PERCENT AUTO 0.1 % (0.0-6.0); HEMATOCRIT 38.7 % (42.0-52.0); HEMOGLOBIN 12.9 g/dL (14.0-18.0); IMMATURE GRAN ABSOLUTE AUTO 0.03 K/uL (0.00-0.05); IMMATURE GRAN PERCENT AUTO 0.3 % (0.0-0.4); LYMPHOCYTES ABSOLUTE AUTO 1.24 K/uL (1.00-4.80); LYMPHOCYTES PERCENT AUTO 10.6 % (24.0-44.0); MEAN CORPUSCULAR HEMOGLOBIN 30.2 pg (28.0-32.0); MEAN CORPUSCULAR HGB CONC 33.3 g/dL (32.0-36.0); MEAN CORPUSCULAR VOLUME 90.6 fL (83.0-99.0); MEAN PLATELET VOLUME 10.6 fL (9.4-12.4); MONOCYTES ABSOLUTE AUTO 0.68 K/uL (0.00-0.80); MONOCYTES PERCENT AUTO 5.8 % (0.0-8.0); NEUTROPHILS ABSOLUTE AUTO 9.74 K/uL (1.80-7.70); NEUTROPHILS PERCENT AUTO 82.9 % (41.0-71.0); PLATELET COUNT,PLT 167 K/uL (150-400); RED BLOOD CELL COUNT 4.27 M/uL (4.52-5.90); WHITE BLOOD CELL COUNT,WBC 11.74 K/uL (3.9-11.3)
[2023-10-07 09:15] LABS: A/G RATIO 1.2 (0.9-1.6); ALBUMIN 4.1 g/dL (3.4-5.0); BILIRUBIN TOTAL 0.5 mg/dL (0.2-1.0); CALCIUM 8.8 mg/dL (8.5-10.1); CARBON DIOXIDE,CO2 28.9 mmol/L (21.0-32.0); EST CRCL DRUG DOSING (CG) 119.22 mL/min; POTASSIUM,K 4.7 mmol/L (3.5-5.1); PROTEIN TOTAL,TP 7.6 g/dL (6.4-8.2)
[2023-10-07 09:16] LABS: CORONAVIRUS COVID-19 NAA NEGATIVE (NEGATIVE); INFLUENZA A NAA NEGATIVE (NEGATIVE); INFLUENZA B NAA NEGATIVE (NEGATIVE); RESPIRATORY SYNCYTIAL VIR NAA NEGATIVE (NEGATIVE)
== END 2023-10-07 11:55 | disposition home or self-care (01) ==
LOC: MW.ED 07:59
DX: K29.20 Alcoholic gastritis without bleeding (principal); Z20.822 Contact with and (suspected) exposure to COVID-19; Z88.0 Allergy status to penicillin; Z88.5 Allergy status to narcotic agent
CPT/HCPCS: 0241U; 36415; 80053; 83690; 85025; 96361; 96374; 96375; 99284; J1885; J2405; J7030

== ENCOUNTER 2023-10-27 09:55 | Emergency (ER) | payer SELFPAY ==
[2023-10-27] MEDS ORDERED: Lidocaine 2% Viscous Solution 15 ML UD PO ONE (10:01)
[2023-10-27] MEDS ORDERED: Benzocaine 20% Topical Spray UD MUCMEM ONE (10:01)
[2023-10-27] MEDS ORDERED: Clindamycin HCl 150 MG Cap PO STA (10:16)
== END 2023-10-27 10:47 | disposition home or self-care (01) ==
LOC: MW.ED 09:55
DX: K04.7 Periapical abscess without sinus (principal); K05.6 Periodontal disease, unspecified; Z88.0 Allergy status to penicillin; Z88.5 Allergy status to narcotic agent
CPT/HCPCS: 99282; A9270; 99283

== ENCOUNTER 2024-07-06 10:52 | Emergency (ER) | payer SELFPAY ==
[2024-07-06] MEDS ORDERED: Sodium Chloride 0.9% 10 ML Syringe FLUSH PRN (11:00)
[2024-07-06] MEDS ORDERED: Sodium Chloride 0.9% 2.5 ML Syringe FLUSH PRN (11:00)
[2024-07-06 11:10] LABS: APPEARANCE,URINE CLEAR; BILIRUBIN,URINE NEGATIVE (NEGATIVE); COLOR,URINE YELLOW; GLUCOSE,URINE NEGATIVE (NEGATIVE); KETONES,URINE NEGATIVE (NEGATIVE); LEUKOCYTE ESTERASE,URINE NEGATIVE (NEGATIVE); NITRITE,URINE NEGATIVE (NEGATIVE); OCCULT BLOOD,URINE NEGATIVE (NEGATIVE); PH,URINE 8.5 (5.0-8.0); PROTEIN,URINE 30 mg/dL (NEGATIVE); UROBILINOGEN,URINE 0.2 EU/dL (<2.0)
[2024-07-06 11:16] LABS: BASOPHILS ABSOLUTE AUTO 0.06 K/uL (0.00-0.20); BASOPHILS PERCENT AUTO 0.4 % (0.0-1.0); EOSINOPHILS ABSOLUTE AUTO 0.07 K/uL (0.00-0.45); EOSINOPHILS PERCENT AUTO 0.5 % (0.0-6.0); HEMATOCRIT 40.6 % (42.0-52.0); HEMOGLOBIN 13.6 g/dL (14.0-18.0); IMMATURE GRAN ABSOLUTE AUTO 0.04 K/uL (0.00-0.05); IMMATURE GRAN PERCENT AUTO 0.3 % (0.0-0.4); LYMPHOCYTES ABSOLUTE AUTO 1.53 K/uL (1.00-4.80); LYMPHOCYTES PERCENT AUTO 10.8 % (24.0-44.0); MEAN CORPUSCULAR HEMOGLOBIN 30.1 pg (28.0-32.0); MEAN CORPUSCULAR HGB CONC 33.5 g/dL (32.0-36.0); MEAN CORPUSCULAR VOLUME 89.8 fL (83.0-99.0); MEAN PLATELET VOLUME 10.1 fL (9.4-12.4); MONOCYTES ABSOLUTE AUTO 1.04 K/uL (0.00-0.80); MONOCYTES PERCENT AUTO 7.3 % (0.0-8.0); NEUTROPHILS ABSOLUTE AUTO 11.41 K/uL (1.80-7.70); NEUTROPHILS PERCENT AUTO 80.7 % (41.0-71.0); PLATELET COUNT,PLT 230 K/uL (150-400); RED BLOOD CELL COUNT 4.52 M/uL (4.52-5.90); WHITE BLOOD CELL COUNT,WBC 14.15 K/uL (3.9-11.3)
[2024-07-06] MEDS: Sodium Chloride 0.9% 1,000 ML IV ONE (11:18)
[2024-07-06] MEDS: Ondansetron 4 MG/2 ML SDV IVPUSH ONE (11:18)
[2024-07-06] MEDS: Ketorolac 30 MG/ML SDV IVPUSH ONE (11:18)
[2024-07-06 11:19] LABS: BACTERIA,URINE MODERATE (NEGATIVE); EPITHELIAL CELLS,URINE RARE (NONE-FEW); RBC,URINE 0-1 (0-2/HPF); WBC,URINE 0-1 (0-5/HPF)
[2024-07-06 11:39] LABS: A/G RATIO 1.3 (0.9-1.6); ALBUMIN 4.3 g/dL (3.4-5.0); BILIRUBIN TOTAL 0.8 mg/dL (0.2-1.0); CALCIUM 9.5 mg/dL (8.5-10.1); CARBON DIOXIDE,CO2 26.5 mmol/L (21.0-32.0); CREATININE 1.1 mg/dL (0.8-1.3); EST CRCL DRUG DOSING (CG) 106.29 mL/min; POTASSIUM,K 4.1 mmol/L (3.5-5.1); PROTEIN TOTAL,TP 7.7 g/dL (6.4-8.2)
[2024-07-06] MEDS: Iopamidol 755 MG/ML 500 ML Multipack Bottle IVPUSH STA (11:59)
== END 2024-07-06 12:57 | disposition home or self-care (01) ==
LOC: MW.ED 10:52
DX: K29.20 Alcoholic gastritis without bleeding (principal); Z75.8 Other problems related to medical facilities and other health care; Z88.0 Allergy status to penicillin; Z88.5 Allergy status to narcotic agent; Z79.899 Other long term (current) drug therapy
CPT/HCPCS: 36415; 74177; 80053; 81001; 83690; 85025; 96361; 96374; 96375; 99284; J1885; J2405; J7030; Q9967

== ENCOUNTER 2024-10-15 23:52 | Emergency (ER) | payer SELFPAY ==
[2024-10-16] MEDS: Ibuprofen 800 MG Tab PO ONE (00:40)
[2024-10-16] MEDS: Acetaminophen 500 MG Tab PO ONE (00:40)
[2024-10-16] MEDS: Amoxicillin/Clavulanate K 875-125 MG Tab PO ONE (00:41)
== END 2024-10-16 00:44 | disposition home or self-care (01) ==
LOC: MW.ED 23:52
DX: K04.7 Periapical abscess without sinus (principal); F17.210 Nicotine dependence, cigarettes, uncomplicated; Z88.0 Allergy status to penicillin; Z88.5 Allergy status to narcotic agent
CPT/HCPCS: 99283; A9270

== ENCOUNTER 2025-02-11 13:51 | Emergency (ER) | payer SELFPAY | END 2025-02-11 16:30 | disposition left against medical advice (07) | LOC: MW.ED 13:51 | DX: T26.91XA Corrosion of right eye and adnexa, part unspecified, initial encounter (principal); Z88.0 Allergy status to penicillin; Z88.5 Allergy status to narcotic agent; X58.XXXA Exposure to other specified factors, initial encounter | CPT/HCPCS: 99282; 99283 ==